=== PATIENT | male | born 1985 | race African-American/Black ===

== ENCOUNTER 2017-06-08 13:58 | Emergency (ER) | payer SELFPAY ==
--- NOTE | 2017-06-08 15:30 | ER Document Report ---
HPI - HPI Patient complains to provider of: Eczema Pain Level: Denies Context: Patient is a 32-year-old male who presents emergency department complaining of eczema on his bilateral ankles. Patient states that he often gets eczema here and has resolution with triamcinolone cream that he received from this department previously. He states he has never used anything [id number]. He states he gets worse in cold weather. Otherwise denies any fever, chills, redness, tenderness. - REPRODUCTIVE Reproductive: DENIES: : Past Medical History - Social History Smoking Status: Smoker,Current Status Unk Family History: Reviewed & Not Pertinent Endocrine Medical History: Denies: Hx Diabetes Mellitus Type 1, Hx Diabetes Mellitus Type 2 Skin Medical History: Denies Hx Cellulitis, Denies Hx Eczema, Denies Hx MRSA, Denies Hx Psoriasis - Immunizations Immunizations up to date: No Hx Diphtheria, Pertussis, Tetanus Vaccination: No Vertical Provider Document - CONSTITUTIONAL Agree With Documented VS: Yes Notes: PHYSICAL EXAM GENERAL: Alert, interacts well. LUNGS: Clear to auscultation bilaterally, no wheezes, rales, or rhonchi. No respiratory distress. HEART: Regular rate and rhythm. No murmurs, gallops, or rubs. EXTREMITIES: Moves all 4 extremities spontaneously. No edema, radial and dorsalis pedis pulses 2/4 bilaterally. No cyanosis. NEUROLOGICAL: Alert and oriented x4. Normal speech. PSYCH: Normal affect, normal mood. SKIN: Warm, dry, normal turgor. pink, blanching flat plaques noted on the anterior aspect of the right ankle and top of the right foot without tenderness , edema, streaking - INFECTION CONTROL TRAVEL OUTSIDE OF THE [place] IN LAST 30 DAYS: No - RESPIRATORY O2 Sat by Pulse Oximetry: 99 Course - Re-evaluation Re-evalutation: 06/08/17 15:26 After performing a Medical Screening Examination, I estimate there is LOW risk for any life threatening rash. At this time the patient looks extremely well and there are no signs of systemic infection, presentation is consistent with patient's history of chronic eczema. The patient and I have discussed the diagnosis and risks, and we agree with discharging home with close follow-up with the understanding that symptoms and presentations can change. We also discussed returning to the Emergency Department immediately if new or worsening symptoms occur. We have discussed the symptoms which are most concerning (e.g., changing or worsening pain, fever, numbness, weakness, cool or painful digits) that necessitate immediate return. - Vital Signs Vital signs: Temp Pulse Resp BP Pulse Ox 98.9 F 74 18 125/74 99 06/08/17 14:16 06/08/17 14:16 06/08/17 14:16 06/08/17 14:16 06/08/17 14:16 Discharge - Discharge Clinical Impression: Eczema Qualifiers: Eczema type: unspecified Qualified Code(s): L30.9 - Dermatitis, unspecified Condition: Good Disposition: HOME, SELF-CARE Instructions: Atopic Dermatitis (Eczema) ([facility]) Additional Instructions: You can utilize [id number] hydrocortisone cream which can be found at your local pharmacy. The higher the percentage the higher potency. Otherwise it is recommended that you find a eczema sensitive brand of laundry detergent and skin care. Prescriptions: Triamcinolone Acetonide 30 gm TP ASDIR PRN #1 cream..g. PRN Reason: Referrals: NORIS AGUILERA DO [ACTIVE STAFF] - Follow up in 1 month
[2017-06-08 16:01] VITALS: BP 135/77
== END 2017-06-08 16:00 | disposition home or self-care (01) ==
LOC: ER 13:58
DX: L30.9 Dermatitis, unspecified (principal)
CPT/HCPCS: 99283